=== PATIENT | female | born 1975 | race Caucasian/White ===

== ENCOUNTER 2021-12-10 18:50 | Emergency (ER) | payer SELFPAY ==
--- NOTE | ~2021-12-10 | CT_ITS ---
EXAMINATION: CT cervical spine wo con DATE: 12/10/2021 19:33 INDICATION: pain, decreased ROM TECHNIQUE: Computed tomography (CT) of the cervical spine was performed without intravenous contrast. Automated exposure control and iterative reconstruction technique were employed. The dose-length pro duct was 133.36 mGy-cm. COMPARISON: None FINDINGS: Counting reference: Craniocervical junction. There are seven cervical type vertebral bodies. Anatomic Variants: None.. Vertebral Body Alignment: Intact. Craniocervical junction: Mild degenerative change. Alignment intact. Osseous structures/fracture: No evidence of a lytic or blastic process in the visualized spine. N o evidence of acute fracture. Cervical soft tissues: The paraspinal soft tissues planes are maintained. Degenerative changes: Severe disc space narrowing and marginal osteophytosis at C5-6. Mild right and severe left uncovertebral joint hypertrophy and left-sided erosive change. Multilevel mild left facet arthropathy. Severe left neural foraminal narrowing at C5-6. No severe central canal narrowing. IMPRESSION: No acute fracture or traumatic malalignment in the cervical spine. Severe degenerative disc disease a t C5-6. Severe left uncovertebral joint hypertrophy at C5-6, causing severe left neural foraminal keith rowing, with erosive changes that may indicate presence of inflammatory arthritis. Reviewed, dictated and finalized at location K. IMPRESSION: No acute fracture or traumatic malalignment in the cervical spine. Severe degen erative disc disease at C5-6. Severe left uncovertebral joint hypertrophy at C5 -6, causing severe left neural foraminal narrowing, with erosive changes that m ay indicate presence of inflammatory arthritis.
[2021-12-10 18:52] VITALS: BP 154/95; PULSE 82; RESP 18; TEMP 36.8; O2SAT 99
--- NOTE | 2021-12-10 19:18 | ED.GENADULT ---
HPI - General Adult General Chief complaint: Unspecified Stated complaint: MUSCLE SPASMS Time Seen by Provider: 12/10/21 19:00 History of Present Illness HPI narrative: Patient is a 46-year-old female who presents ER with left-sided neck pain. Radiates to her shoulder and feels like she has a rolling cramp that will occur from her spine towards her shoulder. This has been increasingly worse over the last 3 weeks. Initially 3 weeks ago she had chiropractic manipulation due to an aching neck. She reports she felt a pop. No numbness or tingling or change in vision or hearing. No focal weakness. She reports just little over week ago the muscle cramps began to increase in intensity again. She has been taking baclofen 3 times a day and she is also been taking aspirin every 6 hours. Denies fevers or chills or sweats. She reports she has history of neck issues and muscle spasms in the past. She also reports she gets muscle spasms in her low back and mid back at times but the 1 she is concerned about today is in her neck. Has pain with lateral movement of her head. 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 After sitting at the [employer] waiting to get allowed to drive she opted to come to the ER to be evaluated. She reports she has been seen in the past for chronic pain by pain management. She has been on medical marijuana. Patient also reports because of the rolling spasm she has been getting a throbbing headache. Occasionally pain from spasm will cause her to vomit. Related Data Allergies Allergy/AdvReac Type Severity Reaction Status Date / Time No Known Allergies Allergy Verified 12/10/21 18:56 Review of Systems Review of Systems: All systems reviewed & are unremarkable except as noted in HPI and below Constitutional: Constitutional: Denies chills, Denies fever(s) and Denies night sweats Gastrointestinal: Gastrointestinal: Denies abdominal pain, Reports nausea and Reports vomiting Musculoskeletal: Musculoskeletal: Reports back pain, Denies arthralgias, Denies joint swelling, Reports muscle cramps, Reports neck pain, Denies numbness and Denies radiating pain into limb Integumentary/Breasts: Skin/Breast: Denies pruritus and Denies rash Neurologic: Reports headache(s), Denies focal weakness, Denies numbness, Denies radicular pain and Denies paresthesias PMFSH Past Medical History Medical History (Updated 12/10/21 @ 20:52 by Lupillo Chavez MD) Chronic back pain Surgical History Surgical History (Updated 12/10/21 @ 19:26 by Lupillo Chavez MD) History of section Social History Social History (Updated 12/10/21 @ 19:26 by Lupillo Chavez MD) Substance use type: marijuana Exam Narrative: GENERAL: Well-appearing, well-nourished, and in no acute distress. HEAD: Normocephalic, atraumatic. EYES: PERRL and EOMI. NECK: Supple. No reproducible tenderness to the midline of the cervical spine nor to the paraspinal musculature or trapezius musculature bilaterally. Patient does not want to perform rotation of the head to the left or right. She can flex and extend her neck without meningismus but is slow with ranging. Midline C-spine and muscles also palpated during range of motion without causing discomfort to the patient. CHEST: Clear to auscultation. No respiratory distress. HEART: Regular rate and rhythm. Normal peripheral pulses. EXTREMITIES: Normal range of motion. No edema. SKIN: Warm, dry, no rash. NEURO: Alert and oriented x3. Course Course Emergency Course: Patient feels much better after IV Toradol and Valium. She is able to range her neck better. She has been informed of the imaging changes. We will recommend Medrol Dosepak and follow-up with PCP outpatient. Discussed with patient the importance is likely being referred to spine surgery for further evaluation and that she may require surgery in the future. Discussed she should also be worked u
[2021-12-10 19:27] LABS: Basophils Absolute Auto 0.1 K/mm3 (0.0-0.1); Basophils Percent Auto 0.8 % (0.2-1.2); Eosinophils Absolute Auto 0.2 K/mm3 (0-0.3); Eosinophils Percent Auto 2.7 % (0-4.4); Hematocrit 36.4 % (37.0-47.0); Hemoglobin 11.6 g/dL (12.0-15.0); Immature Granulocyte Absolute 0.02 K/mm3 (0.00-0.031); Immature Granulocyte Percent A 0.3 % (0-0.5); Lymphocytes Absolute Auto 2.15 K/mm3 (0.9-3.2); Lymphocytes Percent Auto 30.2 % (18.3-44.2); Mean Corpuscular HGB Conc 31.9 g/dl (32-36); Mean Corpuscular Hemoglobin 28.9 pg (26-34); Mean Corpuscular Volume 90.5 fl (80-100); Mean Platelet Volume 9.3 fl (7.4-10.4); Monocytes Absolute Auto 0.8 K/mm3 (0.1-0.6); Monocytes Percent Auto 10.7 % (2.6-8.5); Neutrophils Absolute Auto 3.9 K/mm3 (1.3-6.7); Neutrophils Percent Auto 55.3 % (45.5-73.1); Platelet Count Result 244 k/mm3 (150-375); Red Blood Count 4.02 M/mm3 (4.2-5.4); Red Cell Distribution Width 13.6 % (11.5-14.5); White Blood Count 7.1 K/mm3 (4.5-10.0)
[2021-12-10] MEDS: SODIUM CHLORIDE 0.9% IV 1,000 ML 999 ML IV CONT (19:34)
[2021-12-10] MEDS: KETOROLAC 30 MG/ML VIAL (*BKC) IV PUSH (19:35)
[2021-12-10] MEDS: diazePAM INJ (*CRX) 10 MG/2 ML SYRINGE 5 MG IV PUSH (19:35)
[2021-12-10 19:36] LABS: Anion Gap 7 mmol/L (8-16); Blood Urea Nitrogen 22 mg/dL (7-17); Calcium 8.8 mg/dL (8.4-10.2); Carbon Dioxide 22 mmol/L (22-30); Chloride 108 mmol/L (98-107); Estimated CRCL calculation 70 ml/min; Estimated Glomerular Filt Rate > 60; Glucose 110 mg/dL (65-110); Potassium 4.4 mmol/L (3.4-5.0); Sodium 137 mmol/L (137-145)
[2021-12-10 21:06] VITALS: BP 141/72; PULSE 72; RESP 18; O2SAT 99
== END 2021-12-10 21:07 | disposition home or self-care (01) ==
PROVIDERS: Emergency Provider Emergency Medicine
DX: M62.830 Muscle spasm of back (principal); M47.812 Spondylosis without myelopathy or radiculopathy, cervical region; M50.322 Other cervical disc degeneration at C5-C6 level
CPT/HCPCS: 36415; 72125; 80048; 85025; 96361; 96374; 96375; 99284; J1885; J3360; J7030